=== PATIENT | male | born 1950 ===

== ENCOUNTER 2025-03-16 13:30 | Emergency (ER) | payer MEDICARE, SELFPAY ==
--- NOTE | ~2025-03-16 | US_ITS ---
CLINICAL HISTORY: bilateral lower leg pain, swelling Venous duplex ultrasound bilateral lower extremity Comparison: None Findings: The visualized deep veins are fully compressible with normal Doppler color flow and spectral tracings. Bilateral popliteal cysts: 2.9 x 1.3 x 2.3 cm on the right and 3.4 x 1.3 x 1.2 cm on the left. IMPRESSION: 1. Negative for bilateral lower extremity deep vein thrombosis. This document has been electronically signed by: Srinivas Doan MD on 03/16/2025 15:52:12
[2025-03-16 13:34] VITALS: BP 148/107; PULSE 94; RESP 19; TEMP 36.6; O2SAT 98; BMI 29.8
--- NOTE | 2025-03-16 13:34 | ED.GENADULT ---
HPI - General Adult General Chief complaint: Extremity Injury, Lower Stated complaint: l knee pain Time Seen by Provider: 03/16/25 13:51 Source: patient, RN notes reviewed and old records reviewed Mode of arrival: ambulatory Limitations: no limitations History of Present Illness ED Provider: Tino JOHNSON narrative: 75-year-old male past medical history significant for prostate cancer presents for evaluation of bilateral leg pain and swelling. Patient reports his left leg is worse in the right but both are swollen painful. He has pain behind his left knee in his left foot that is worse at night and worse with walking. His pain has been present for the last few weeks. He reports that 3 days ago he took some aspirin which relieved his pain in his left knee he reports going to urgent care today but they would not see me because I do not own a credit card. The patient reports last September he was treated for prostate cancer with radiation he is unsure if his current leg swelling is related to the he denies any recent falls worsening injuries or trauma. Denies any redness, rashes to the legs Related Data Allergies Allergy/AdvReac Type Severity Reaction Status Date / Time No Known Allergies Allergy Verified 03/16/25 13:36 [No Known Allergies*] Review of Systems Constitutional: Constitutional: Denies chills, Denies fever(s) and Denies headache(s) Eyes: Eyes: Denies blurry vision ENT: Denies dysphagia, Denies vertigo, Denies dizziness and Denies headache(s) Cardiovascular: Cardiovascular: Denies chest pain and Denies dyspnea Respiratory: Respiratory: Denies cough and Denies dyspnea Gastrointestinal: Gastrointestinal: Denies abdominal pain, Denies dysphagia, Denies nausea and Denies vomiting Musculoskeletal: Musculoskeletal: Denies back pain, Reports arthralgias, Reports joint swelling, Reports limited range of motion and Reports stiffness Integumentary/Breasts: Skin/Breast: Denies rash Neurologic: Denies vertigo, Denies dizziness and Denies headache(s) Psychiatric: Psychiatric: Denies anxiety PMFSH Social History Social History Advance Directives: No Advance Directives Information Provided: No Do you have a plan to hurt others: No Plan Physical Exam ED Vital Signs: Vital Signs - 24 hr 03/16/25 13:34 03/16/25 13:44 03/16/25 14:00 Temperature 98 F 97.8 F Pulse Rate 94 90 81 Respiratory Rate 19 18 16 Blood Pressure 148/107 H 154/90 H 129/73 Pulse Oximetry 98 96 94 Oxygen Delivery Method Room Air BMI result Body Mass Index 29.8 Const General: healthy appearing, comfortable, no acute distress, alert and awake Nutritional Appearance: well nourished Orientation/consciousness: patient oriented x3 HENMT Head: Yes normocephalic and Yes atraumatic Eyes Eyelids: Yes eyelids normal Conjunctivae: conjunctivae normal Sclerae: sclerae normal Corneas: corneas normal Pupils: Equal, round and reactive pupils present EOM: EOMs intact bilaterally Neck Neck: Yes full ROM Resp Effort & Inspection: normal respiratory effort, able to speak in complete sentences and not labored Cardio Rate: regular rate Rhythm: regular rhythm Skin General skin exam: elasticity normal Neuro General: patient oriented x3 Cranial nerves: Yes Equal, round and reactive pupils present and Yes Bilaterally intact EOM present Cognition (Neuro): normal cognition Extrem Other: large surgical scar to the right lower moore. bilateral nonpitting edema to lower extremity. there is positive calf tenderness on the left with positive Homans sign. Skin is warm, dry, well perfused, DP and PT pulses 2+ and equal. Course Course Course Narrative: RME performed by Octavia Matthew PA-C. Patient is a 75 year old assigned male at presenting to the emergency department with bilateral lower leg pain. Patient states that his left lower leg hurts worse than the right. Patient states that it is worse at night. Patient states that he has a history of cancer for which he was given radiation. Detailed physical exam and review of systems are deferred to the wire harness design engineer. Labs and imaging ordered. Patient placed back in the waiting room pending room availability and results. Medical Decision Making Medical Decision Making [facility] Narrative: 75-year-old male presents for evaluation of bilateral leg pain and swelling but left greater than right. He does have some edema on exam but otherwise no overlying skin changes, good perfusion to the left lower extremity. There was no trauma. Plan for basic labs, ultrasound to rule out DVT. This may also rule out popliteal fossa cyst. The patient's symptoms could be related to lymphedema as side effects from his prostatic radiation. there was no evidence of infectious process Differential Diagnosis Differential Diagnoses: The differential diagnosis associated with the presentation includes lymphedema Cellulitis DVT CHF Lab Data [facility] Lab Attestation statement: I reviewed the patient's lab results. no leukocytosis. The patient has a very mild anemia of unclear etiology. he has no active bleeding. there is no significant thrombocytopenia. The patient is low normal. chemistries without significant findings 03/16/25 13:48 03/16/25 13:48 Labs: Lab Results 03/16/25 Range/Units 13:48 WBC 6.4 (4.8-10.8) X10*3/uL RBC 4.68 (4.60-5.80) X10*6/uL Hgb 13.9 L (14.0-18.0) g/dl Hct 41.7 L (42.0-52.0) % MCV 89.1 (80.0-98.0) fL MCH 29.7 (27.0-33.0) pg MCHC 33.3 (31.0-36.0) g/dl RDW 13.5 (11.0-16.0) % Plt Count 158 L (160-400) X10*3/uL MPV 8.6 L (9.4-12.4) fL Immature Gran % (Auto) 0.5 H (0.0-0.4) % Neut % (Auto) 70.9 (45-73) % Lymph % (Auto) 19.4 L (20-40) % [place] % (Auto) 8.1 (2-11) % Eos % (Auto) 0.6 (0-4) % Baso % (Auto) 0.5 (0-2) % Lymph # (Auto) 1.2 (1.2-4.9) X10*3/uL [place] # (Auto) 0.5 (0.1-1.2) X10*3/uL Eos # (Auto) 0.0 (0.0-0.4) X10*3/uL Baso # (Auto) 0.0 (0.0-0.2) X10*3/uL Abs Immat Gran (auto) 0.03 (0.00-0.03) X10*3/uL Absolute Neuts (auto) 4.5 (2.0-8.3) x10*3/uL Absolute Nucleated RBC 0.000 (0.0-0.012) X10*3/uL Nucleated RBC % (auto) 0.0 (0.0-0.2) /100WBC PT 11.8 (10.9-12.4) SEC INR 1.0 (0.9-1.1) Sodium 142 (135-145) mmol/L Potassium 4.7 (3.3-5.1) mmol/L Chloride 108 (96-108) mmol/L Carbon Dioxide 24 (22-29) mmol/L Anion Gap 15 (12-20) BUN 22 H (9-16) mg/dL Creatinine 0.84 (0.5-1.4) mg/dL Estim Creat Clear Calc 87.4 Estimated GFR > 60 Random Glucose 104 (60-115) mg/dL Calcium 9.7 (8.4-10.2) mg/dL Magnesium 2.0 (1.6-2.6) mg/dL Total Bilirubin 0.7 (0.0-1.0) mg/dL AST 23 (5-37) U/L ALT 10 (0-40) U/L Alkaline Phosphatase 66 (39-117) U/L Total Protein 6.6 (6.5-8.0) g/dL Albumin 4.0 (3.5-5.0) g/dL Radiology Impression Discussion of test interpretation with radiology: I have reviewed the radiologist's reading. Radiologist Impression: Findings: The visualized deep veins are fully compressible with normal Doppler color flow and spectral tracings. Bilateral popliteal cysts: 2.9 x 1.3 x 2.3 cm on the right and 3.4 x 1.3 x 1.2 cm on the left. IMPRESSION: 1. Negative for bilateral lower extremity deep vein thrombosis. This document has been electronically signed by: Srinivas Doan MD on 03/16/2025 15:52:12 Discharge Plan Discharge Clinical Impression: Rojas's cyst Patient Disposition: Home, Self-Care Instructions: Rojas Cyst (ED) Additional Instructions: your workup in the ER today shows that you have a cyst behind both of your knees. These are called Rojas's cyst or popliteal fossa cyst. They may rupture on their own. You may follow up with Orthopedics at the number provided you may use Tylenol as needed for pain. You do not have any blood clots seen in your legs bilaterally Referrals: [facility] [Provider Group] (rojas's cyst) Print Language: [place]
[2025-03-16 13:44] VITALS: BP 154/90; PULSE 90; RESP 18; TEMP 36.6; O2SAT 96
[2025-03-16 13:59] LABS: MANUAL DIFF FLAG NO
[2025-03-16 14:00] VITALS: BP 129/73; PULSE 81; RESP 16; O2SAT 94
[2025-03-16 14:00] LABS: Basophils Percent Auto 0.5 % (0-2); Eosinophils Percent Auto 0.6 % (0-4); Hematocrit 41.7 % (42.0-52.0); Hemoglobin 13.9 g/dl (14.0-18.0); Imm Gran Abs Auto 0.03 X10*3/uL (0.00-0.03); Imm Gran Pct Auto 0.5 % (0.0-0.4); Lymphocytes Absolute Auto 1.2 X10*3/uL (1.2-4.9); Lymphocytes Percent Auto 19.4 % (20-40); Mean Corpuscular HGB Conc 33.3 g/dl (31.0-36.0); Mean Corpuscular Hemoglobin 29.7 pg (27.0-33.0); Mean Corpuscular Volume 89.1 fL (80.0-98.0); Mean Platelet Volume 8.6 fL (9.4-12.4); Monocytes Absolute Auto 0.5 X10*3/uL (0.1-1.2); Monocytes Percent Auto 8.1 % (2-11); Neutrophils Absolute Auto 4.5 x10*3/uL (2.0-8.3); Neutrophils Percent Auto 70.9 % (45-73); Platelet Count 158 X10*3/uL (160-400); Red Blood Count 4.68 X10*6/uL (4.60-5.80); Red Cell Distribution Width 13.5 % (11.0-16.0); White Blood Count 6.4 X10*3/uL (4.8-10.8)
[2025-03-16 14:05] LABS: Prothrombin Time 11.8 SEC (10.9-12.4)
[2025-03-16 14:15] LABS: Alanine Aminotransferase 10 U/L (0-40); Anion Gap 15 (12-20); Aspartate Amino Transferase 23 U/L (5-37); Bilirubin Total 0.7 mg/dL (0.0-1.0); Blood Urea Nitrogen 22 mg/dL (9-16); Calcium 9.7 mg/dL (8.4-10.2); Carbon Dioxide 24 mmol/L (22-29); Chloride 108 mmol/L (96-108); Creatinine Clr Calc Pharmacy 87.4; Estimated Glomerular Filt Rate > 60; Glucose Random 104 mg/dL (60-115); Potassium 4.7 mmol/L (3.3-5.1); Sodium 142 mmol/L (135-145); Total Protein 6.6 g/dL (6.5-8.0)
--- NOTE | 2025-03-16 14:26 | PC.NURSE ---
U/S at the bedside
[2025-03-16 14:31] LABS: Alkaline Phosphatase 66 U/L (39-117)
[2025-03-16 16:23] VITALS: BP 129/73; PULSE 81; RESP 16; TEMP 36.7; O2SAT 94
== END 2025-03-16 16:24 | disposition home or self-care (01) ==
PROVIDERS: Physician Assistant Medical; Emergency Provider Emergency Medicine Emergency Medical Services; PCP Internal Medicine
DX: M71.22 Synovial cyst of popliteal space [Baker], left knee (principal); R60.0 Localized edema; M25.562 Pain in left knee; Z79.899 Other long term (current) drug therapy
CPT/HCPCS: 36415; 80053; 83735; 85025; 85610; 93970; 99284

== ENCOUNTER → 2025-03-16 13:35 | Outpatient (BNV) | payer MEDICARE, SELFPAY | PROVIDERS: Emergency Provider Emergency Medicine Emergency Medical Services; PCP Internal Medicine; Visit Provider Nuclear Medicine | DX: M79.605 Pain in left leg (principal); M79.604 Pain in right leg; R22.43 Localized swelling, mass and lump, lower limb, bilateral | CPT/HCPCS: 93970 ==